=== PATIENT | female | born 1945 | race Caucasian/White ===

== ENCOUNTER 2016-12-04 14:10 | Emergency (ER) | payer MEDICARE ==
[2016-12-04 15:02] VITALS: BP 125/69
--- NOTE | 2016-12-04 15:33 | UC ---
Throat Pain/Nasal Angel HPI - HPI Summary HPI Summary: TEN DAYS OF COUGH SINUS PRESSURE CONGESTION HEADACHE AND COUGH - History of Current Complaint Chief Complaint: UCRespiratory Stated Complaint: HEADACHE COUGH CONGESTION Time Seen by Provider: 12/04/16 15:09 Hx Obtained From: Patient Onset/Duration: Gradual Onset, Lasting Weeks, Still Present, Worse Since - PROGRESSIVE Severity: Moderate Cough: Nonproductive Associated Signs & Symptoms: Positive: Sinus Discomfort, Nasal Discharge, Fever - Epiglottits Risk Factors Epiglottis Risk Factors: Negative - Allergies/Home Medications Allergies/Adverse Reactions: Allergies Allergy/AdvReac Type Severity Reaction Status Date / Time Penicillin G Allergy Intermediate Swelling Verified 12/04/16 15:02 Sulfa Drugs Allergy Intermediate Swelling Verified 12/04/16 15:02 PMH/Surg Hx/FS Hx/Imm Hx Previously Healthy: Yes Endocrine History Of: Denies: Diabetes, Thyroid Disease Cardiovascular History Of: Denies: Cardiac Disorders, Hypertension, Pacemaker/ICD Respiratory History Of: Denies: COPD, Asthma GI/ History Of: Denies: Ulcer Neurological History Of: Reports: Migraine - NOT RECENTLY Psychological History Of: Reports: Anxiety, Depression - MEDICATION WORKING WELL - Surgical History Surgical History: Yes Surgery Procedure, Year, and Place: right oopherectomy 1963 with appendectomy.tubal, csection, bilat hands,right foot,cataracts, macular hole surgery - Family History Known Family History: Positive: Cardiac Disease, Hypertension - Social History Occupation: Retired Lives: With Family Alcohol Use: Daily Alcohol Amount: 1-2 glass wine nightly Substance Use Type: None Smoking Status (MU): Former Smoker Type: Cigarettes Have You Smoked in the Last Year: Yes When Did the Patient Quit Smoking/Using Tobacco: 40 years ago - Immunization History Most Recent Influenza Vaccination: [id number] Season Most Recent Pneumonia Vaccination: 2012 Review of Systems Constitutional: Negative Skin: Negative Eyes: Negative ENT: Ear Ache, Nasal Discharge Respiratory: Cough Cardiovascular: Negative Gastrointestinal: Negative Genitourinary: Negative Motor: Negative Neurovascular: Negative Musculoskeletal: Negative Neurological: Negative Psychological: Negative All Other Systems Reviewed And Are Negative: Yes Physical Exam Triage Information Reviewed: Yes Appearance: No Pain Distress, Well-Nourished, Ill-Appearing - MILD Vital Signs: Initial Vital Signs Temp 99.1 F 12/04/16 14:57 Pulse 94 12/04/16 14:57 Resp 16 12/04/16 14:57 BP 125/69 12/04/16 14:57 Pulse Ox 99 12/04/16 14:57 Vital Signs Reviewed: Yes Eye Exam: Normal ENT: Positive: Hearing grossly normal, Pharynx normal, TM bulging, TM dull Dental Exam: Normal Neck exam: Normal Neck: Positive: Supple, Nontender, No Lymphadenopathy Respiratory Exam: Normal Respiratory: Positive: Chest non-tender, Lungs clear, Normal breath sounds, No respiratory distress, No accessory muscle use Cardiovascular Exam: Normal Cardiovascular: Positive: RRR, No Murmur, Pulses Normal Abdominal Exam: Normal Abdomen Description: Positive: Nontender, No Organomegaly Musculoskeletal Exam: Normal Musculoskeletal: Positive: Strength Intact, ROM Intact Neurological Exam: Normal Psychological Exam: Normal Psychological: Positive: Normal Response To Family Skin Exam: Normal Throat Pain/Nasal Course/Dx - Differential Dx/Diagnosis Differential Diagnosis/HQI/PQRI: Sinusitis, Tonsillitis, URI Provider Diagnoses: SINUSITIS Discharge - Discharge Plan Condition: Stable Disposition: HOME Prescriptions: Benzonatate CAP* [Tessalon CAP*] 100 mg PO TID PRN #15 cap PRN Reason: Cough DOXYcycline CAP(*) [DOXYcycline 100MG CAP(*)] 100 mg PO BID #20 cap Patient Education Materials: Sinusitis (ED), Upper Respiratory Infection (ED) Referrals: Tracy Truong MD [Primary Care Provider] -
== END 2016-12-04 15:34 | disposition home or self-care (01) ==
LOC: UCEAST 14:10
DX: J32.9 Chronic sinusitis, unspecified (principal); Z88.0 Allergy status to penicillin; Z88.2 Allergy status to sulfonamides; Z87.891 Personal history of nicotine dependence
CPT/HCPCS: 99212; G0463

== ENCOUNTER 2017-09-26 08:55 | Emergency (ER) | payer MEDICARE ==
[2017-09-26 09:12] VITALS: BP 129/64
--- NOTE | 2017-09-26 10:44 | UC ---
Throat Pain/Nasal Angel HPI - HPI Summary HPI Summary: ONE WEEK OF SINUS PAIN, FACIAL PRESSURE AND, COUGH. OVER THE LAST FEW DAYS HAS ALSO NOTICED A TENDER WARM RED AREA WITH A SMALL LUMP ON (ANTERIOR) LEFT LEG. NO DRAINAGE. NO KNOWN TRAUMA. - History of Current Complaint Chief Complaint: UCGeneralIllness Stated Complaint: SORE THROAT, COUGH, HEADACHE Time Seen by Provider: 09/26/17 10:01 Hx Obtained From: Patient Onset/Duration: Gradual Onset, Lasting Weeks, Still Present Severity: Moderate Pain Intensity: 0 Pain Scale Used: 0-10 Numeric Cough: Nonproductive Associated Signs & Symptoms: Positive: Hoarseness, Sinus Discomfort, Nasal Discharge, Rash - LEFT ANTERIOR LEG - Epiglottits Risk Factors Epiglottis Risk Factors: Negative - Allergies/Home Medications Allergies/Adverse Reactions: Allergies Allergy/AdvReac Type Severity Reaction Status Date / Time Penicillin G Allergy Intermediate Swelling Verified 09/26/17 09:12 Sulfa Drugs Allergy Intermediate Swelling Verified 09/26/17 09:12 PMH/Surg Hx/FS Hx/Imm Hx Previously Healthy: Yes - Surgical History Surgical History: Yes Surgery Procedure, Year, and Place: right oopherectomy 1963 with appendectomy.tubal, csection, bilat hands TENDON TRANSPLANT/CARPAL TUNNEL TRIGGER FINGER,right foot MORTONS NEUROMA/BUNIONECTOMY,RIGHT cataracts, macular hole surgery - Family History Known Family History: Positive: Cardiac Disease, Hypertension - Social History Occupation: Employed Full-time Lives: With Family Alcohol Use: Daily Alcohol Amount: 1-2 glass wine nightly Substance Use Type: None Smoking Status (MU): Former Smoker Type: Cigarettes Have You Smoked in the Last Year: Yes When Did the Patient Quit Smoking/Using Tobacco: 40 years ago - Immunization History Most Recent Influenza Vaccination: [id number] Season Most Recent Pneumonia Vaccination: 2012 Review of Systems Constitutional: Negative Skin: Rash Eyes: Negative ENT: Nasal Discharge, Sinus Congestion, Sinus Pain/Tenderness Respiratory: Cough Cardiovascular: Negative Gastrointestinal: Negative Genitourinary: Negative Motor: Negative Neurovascular: Negative Musculoskeletal: Negative Neurological: Negative Psychological: Negative Is Patient Immunocompromised?: No All Other Systems Reviewed And Are Negative: Yes Physical Exam Triage Information Reviewed: Yes Appearance: No Pain Distress, Well-Nourished, Ill-Appearing - MILDLY Vital Signs: Initial Vital Signs Temp 98.6 F 09/26/17 09:06 Pulse 52 12/07/17 09:06 BP 129/64 09/26/17 09:06 Pulse Ox 100 09/26/17 09:06 Vital Signs Reviewed: Yes Eye Exam: Normal ENT: Positive: Nasal congestion, TM bulging, TM dull Dental Exam: Normal Neck exam: Normal Neck: Positive: Supple, Nontender, No Lymphadenopathy Respiratory Exam: Other - COUGH Respiratory: Positive: Chest non-tender, Lungs clear, Normal breath sounds, No respiratory distress, No accessory muscle use Cardiovascular Exam: Normal Cardiovascular: Positive: RRR, No Murmur, Pulses Normal, Brisk Capillary Refill Abdominal Exam: Normal Musculoskeletal Exam: Normal Neurological Exam: Normal Psychological Exam: Normal Skin: Positive: Other - 2CM X 1CM INDURATED WARM TENDER AREA ON LEFT ANTERIOR TIBIA WITH SURROUNDING SCANT MACULAR ERYTHEMA Throat Pain/Nasal Course/Dx - Differential Dx/Diagnosis Differential Diagnosis/HQI/PQRI: Sinusitis, Tonsillitis, URI Provider Diagnoses: SNUSITIS; CELLULITIS LEFT ANTERIOR LEG Discharge - Discharge Plan Condition: Stable Disposition: HOME Prescriptions: Cephalexin CAP* [Keflex CAP*] 500 mg PO TID #30 cap Patient Education Materials: Cellulitis (ED), Sinusitis (ED) Referrals: Ivania Griggs MD [Primary Care Provider] - Images Front/Back of Body, Lg (George): 1 - 2CM X 1CM INDURATED WARM TENDER AREA ON LEFT ANTERIOR TIBIA WITH SURROUNDING SCANT MACULAR ERYTHEMA
== END 2017-09-26 10:20 | disposition home or self-care (01) ==
LOC: UCEAST 08:55
DX: J32.9 Chronic sinusitis, unspecified (principal); L03.116 Cellulitis of left lower limb; Z90.721 Acquired absence of ovaries, unilateral; Z88.0 Allergy status to penicillin; Z88.2 Allergy status to sulfonamides; Z87.891 Personal history of nicotine dependence
CPT/HCPCS: 99212; G0463

== ENCOUNTER 2018-02-10 11:39 | Emergency (ER) | payer MEDICARE ==
[2018-02-10 11:59] VITALS: BP 144/67
--- NOTE | 2018-02-10 12:31 | RAD ---
HISTORY: Right shoulder pain COMPARISONS: None VIEWS: 4, Frontal internal rotation, external rotation, outlet, and axillary views of the right shoulder FINDINGS: BONE DENSITY: Normal. BONES: There is no displaced fracture. JOINTS: There is mild osteoarthritis of the right AC joint. ALIGNMENT: There is no dislocation. SOFT TISSUES: Unremarkable. OTHER FINDINGS: None. IMPRESSION: NO ACUTE OSSEOUS INJURY. IF SYMPTOMS PERSIST, RECOMMEND REPEAT IMAGING.
--- NOTE | 2018-02-10 12:31 | UC ---
Upper Extremity HPI - HPI Summary HPI Summary: Pt presents with right shoulder pain. She tells me that she has a history of arthritis in this shoulder and it is always painful, but yesterday she was lifting boxes. Had no specific injury, but woke up this morning with pain in her right shoulder. Has been applying bengay with good pain relief. Denies numbness or tingling. - History of Current Complaint Chief Complaint: UCUpperExtremity Stated Complaint: SHOULDER PAIN Time Seen by Provider: 02/10/18 12:04 Hx Obtained From: Patient Onset/Duration: Sudden Onset Severity Initially: Moderate Severity Currently: Moderate Pain Intensity: 8 Character: Dull, Stiffness Aggravating Factor(s): Movement Alleviating Factor(s): OTC Meds - Allergies/Home Medications Allergies/Adverse Reactions: Allergies Allergy/AdvReac Type Severity Reaction Status Date / Time Penicillins Allergy Swelling Verified 02/10/18 12:00 Sulfa (Sulfonamide Allergy Swelling Verified 02/10/18 12:00 Antibiotics) Home Medications: Home Medications FLUoxetine CAP* [PROzac CAP*] 10 mg PO BEDTIME 02/10/18 [History Confirmed 02/10] Ibuprofen TAB* [Advil TAB*] 200 mg PO Q6H PRN 02/10/18 [History Confirmed ] Sertraline* [Zoloft*] 200 mg PO DAILY 02/10/18 [History Confirmed 02/10/18] PMH/Surg Hx/FS Hx/Imm Hx Previously Healthy: Yes Psychological History: Anxiety, Depression - Surgical History Surgical History: Yes Surgery Procedure, Year, and Place: right oopherectomy 1963 with appendectomy.tubal, csection, bilat hands TENDON TRANSPLANT/CARPAL TUNNEL TRIGGER FINGER,right foot MORTONS NEUROMA/BUNIONECTOMY,RIGHT cataracts, macular hole surgery - Family History Known Family History: Positive: Cardiac Disease, Hypertension - Social History Alcohol Use: Weekly Alcohol Amount: 1-2 glass wine nightly Substance Use Type: None Smoking Status (MU): Former Smoker Type: Cigarettes Have You Smoked in the Last Year: Yes When Did the Patient Quit Smoking/Using Tobacco: 40 years ago - Immunization History Most Recent Influenza Vaccination: [id number] Season Most Recent Pneumonia Vaccination: 2012 Review of Systems Constitutional: Negative Skin: Negative Respiratory: Negative Cardiovascular: Negative Gastrointestinal: Negative Neurovascular: Negative Musculoskeletal: Decreased ROM - Right shoulder, Other: - Right shoulder pain Neurological: Negative Psychological: Negative All Other Systems Reviewed And Are Negative: Yes Physical Exam - Summary Physical Exam Summary: GENERAL: NAD. WDWN. No pain distress. SKIN: No rashes, sores, ulcers, masses, lesions. NECK: Supple. Nontender. No lymphadenopathy. CHEST: CTAB. No r/r/w. No accessory muscle use. Breathing comfortably and in no distress. CV: RRR. Without m/r/g. Pulses intact radial and ulnar. MSK: TTP over right trapezius and right suprascapular muscle. Strength 5/5 including work checker strength and FROM - pain increased with full flexion of right shoulder. No edema or obvious bony deformities. Negative apleys, apprehension, empty can, galvan-oleg, neer, patel, and yergason tests. NEURO: Alert. Sensations intact right UE C4-T1 PSYCH: Age appropriate behavior. Triage Information Reviewed: Yes Vital Signs: Initial Vital Signs Temp 98.3 F 02/10/18 11:55 Pulse 81 02/10/18 11:55 Resp 16 02/10/18 11:55 BP 144/67 02/10/18 11:55 Pulse Ox 100 02/10/18 11:55 Upper Extremity Course/Dx - Course Course Of Treatment: XR: IMPRESSION: NO ACUTE OSSEOUS INJURY. IF SYMPTOMS PERSIST, RECOMMEND REPEAT IMAGING. Suspect muscle strain of right shoulder/ trapezius. Advised to continue tylenol and will rx for voltaren gel. - Differential Dx/Diagnosis Provider Diagnoses: Muscle strain right shoulder Discharge - Sign-Out/Discharge Documenting (check all that apply): Discharge/Admit/Transfer - Discharge Plan Condition: Stable Disposition: HOME Prescriptions: Diclofenac 1% GEL (NF) [Voltaren 1% GEL (NF)] 1 applic TOPICAL BID PRN #1 tube PRN Reason: Pain Patient Education Materials: Muscle Spasm (ED) Referrals: Ivania Griggs MD [Primary Care Provider] - Additional Instructions: If you develop a fever, shortness of breath, chest pain, new or worsening symptoms - please call your PCP or go to the ED. - Billing Disposition and Condition Condition: STABLE Disposition: HOME
== END 2018-02-10 13:01 | disposition home or self-care (01) ==
LOC: UCEAST 11:39
DX: S46.911A Strain of unspecified muscle, fascia and tendon at shoulder and upper arm level, right arm, initial encounter (principal); X50.0XXA Overexertion from strenuous movement or load, initial encounter; Y93.9 Activity, unspecified; Y92.9 Unspecified place or not applicable; F41.9 Anxiety disorder, unspecified; F32.9 Major depressive disorder, single episode, unspecified; Z88.0 Allergy status to penicillin; Z88.2 Allergy status to sulfonamides; Z87.891 Personal history of nicotine dependence
CPT/HCPCS: 99212; G0463

== ENCOUNTER 2019-02-23 09:21 | Day surgery (SDC) | payer MEDICARE ==
--- NOTE | 2019-01-16 13:55 | HP ---
PREOPERATIVE HISTORY AND PHYSICAL: DATE OF ADMISSION/SURGERY: 01/26/19 DATE OF OFFICE VISIT: 01/16/19 ATTENDING SURGEON: Dr. Javier Bustos* (dictated by VINOD Martin). PROCEDURE: Left shoulder possible arthroscopic rotator cuff repair, arthroscopic decompression and debridement, subpectoral biceps tenodesis. CHIEF COMPLAINT: Left shoulder pain. HISTORY OF PRESENT ILLNESS: Trisha is a 74-year-old female who presents to the clinic for left shoulder pain due to partial-thickness rotator cuff tearing and biceps tendinitis. She has failed conservative measures; therefore, agreed to undergo a left shoulder possible arthroscopic rotator cuff repair, arthroscopic decompression and debridement, subpectoral biceps tenodesis with Dr. Bustos on 01/26/19. PAST MEDICAL HISTORY: Osteoarthritis, depression, anxiety, GERD, high cholesterol, and seasonal allergies. PAST SURGICAL HISTORY: Multiple hand surgeries bilaterally, , right foot surgery, cataract surgery, macular hole repair, dental surgery and implants , and oophorectomy. The patient is unable to take Versed because it causes extreme vomiting, otherwise denies complications with anesthesia. MEDICATIONS: 1. Multivitamin 1 daily. 2. Vitamin B12 1000 mcg 1 every day. 3. Vitamin B once a day. 4. Florastor 250 mg 1 by mouth twice a day. 5. Omeprazole 40 mg 1 by mouth twice a day. 6. Diclofenac 1% 1 g on the hand twice a day. 7. QVAR RediHaler 80 mcg per ACT 2 puffs twice a day. 8. Sertraline 100 mg 2 by mouth every day. 9. Atorvastatin 10 mg 1 by mouth every day. 10. Alendronate sodium 70 mg take once weekly on an empty stomach. ALLERGIES: SULFA ANTIBIOTICS and VERSED. FAMILY HISTORY: Positive for diabetes, cancer and RA. Denies family history of DVT or PE. SOCIAL HISTORY: She lives with her spouse. She is a retired teacher. She denies tobacco use. She denies alcohol consumption. She is right-hand dominant. REVIEW OF SYSTEMS: A 14-point review of systems was reviewed with the patient. Positive for current complaint, otherwise negative. Denies fever, chills, chest pain, shortness of breath, history of bleeding disorder, history of DVT or PE. PHYSICAL EXAMINATION GENERAL: A 74-year-old well-developed, well-nourished female, in no acute distress. VITAL SIGNS: Height 65, weight 128, pulse 84, blood pressure 122/72, respiratory rate 18, temperature 99.3, BMI 21.3. HEENT: Normocephalic, atraumatic. PERRLA. Throat clear. NECK: Supple. PULMONARY: Lungs are clear to auscultation bilaterally. No wheezing, rhonchi, or rales. CARDIO: Regular rate and rhythm. S1, S2. No murmurs, gallops, or rubs. No edema. ABDOMEN: Positive bowel sounds. Soft, nontender. NEURO: Alert and oriented x3. Cranial nerves grossly intact. MUSCULOSKELETAL: Left upper extremity: Skin is intact. No warmth or erythema. Forward flexion and abduction 170, external rotation to 65, internal rotation to the lumbar spine. Tenderness to palpation of the bicipital groove. +5/5 strength to rotator cuff testing with pain. Positive impingement, Speed' s, Keith', [place]'s. +2 radial pulse. Sensation is intact to light touch distally. DIAGNOSTIC STUDIES: MRI of the left shoulder revealed cystic changes of the rotator cuff insertion with partial-thickness tearing and supraspinatus tendinosis as well as fluid in the bicipital groove and biceps tendinopathy. IMPRESSION: Left shoulder rotator cuff tear, biceps tendinitis. PLAN: The patient is scheduled to undergo a left shoulder possible arthroscopic rotator cuff repair, arthroscopic decompression and debridement, subpectoral biceps tenodesis with Dr. Bustos on 01/26/19. She will follow up 10 to 14 days postop for followup and suture removal. Percocet will be used for postop pain management. VINOD MARTIN [id number]/[facility] #: [id number] HOSPITALHenrique
[~2019-02-23 09:21] MED LIST: Buffered Lidocaine 1% SYRIN* 1 ML/SYRINGE INTRADERM ONE; Dexmedetomidine* 200 MCG/2 ML 2 ML VIAL ONE; Lactated Ringers 1000 ML Bag* 1,000 ML IV SCH; Lidocaine 2% PF * 5 ML VIAL ONE; Midazolam* 1 MG/ML 2 ML VIAL (2 MG) ONE; Propofol* 10 MG/ML 20 ML BTL ONE; Rocuronium* 10 MG/ML VIAL ONE; fentaNYL* 50 MCG/ML 2 ML VIAL (100 MCG VIAL) ONE
[2019-02-23] MEDS ORDERED: ceFAZolin 2 GM PREMIX in ORs 2 GM/50 ML BAG IVPB ONE (09:25)
[2019-02-23] MEDS ORDERED: ROPIVACAINE 5 MG/ML 30 ML BTL (0.5%) ONE (10:06)
[2019-02-23] MEDS ORDERED: Bupivacaine 0.25% SDV* 30 ML ONE (10:27)
[2019-02-23] MEDS ORDERED: Dexamethasone IV* 4 MG/ML 1 ML (4 MG) ONE (12:04)
[2019-02-23] MEDS ORDERED: EPHEDrine (Pressors)* 50 MG/ML VIAL ONE (12:17)
[2019-02-23] MEDS ORDERED: Naloxone* 0.4 MG/ML 1 ML VIAL IV PRN (12:56)
[2019-02-23] MEDS ORDERED: DiMENhydriNATE IV* 50 MG/ML VIAL IV PUSH PRN (12:56)
[2019-02-23] MEDS ORDERED: fentaNYL* 50 MCG/ML 2 ML VIAL (100 MCG VIAL) IV PRN (12:56)
[2019-02-23] MEDS ORDERED: oxyCODONE TAB* 5 MG TAB PO PRN (12:56)
[2019-02-23] MEDS ORDERED: Ondansetron INJ* 2 MG/ML VIAL ONE (12:57)
[2019-02-23] MEDS ORDERED: Metoclopramide IV* 5 MG/ML 2 ML VIAL ONE (12:57)
[2019-02-23] MEDS ORDERED: Ketorolac INJ* 30 MG/ML 1 ML VIAL ONE (12:57)
[2019-02-23] MEDS ORDERED: Acetaminophen IV 1GM/100ML * 100 ML ONE (12:59)
[2019-02-23 14:23] VITALS: BP 122/68
--- NOTE | 2019-02-24 05:45 | OP ---
DATE OF OPERATION: 02/23/19 - [facility] DATE OF : 49 SURGEON: Javier Bustos MD ASSISTANTS: 1. VINOD Rodriguez 2. Bev Nava. Assistants were needed for the entire of the case to help with positioning, retraction, and was utilized throughout all portions of the case. ANESTHESIOLOGIST: Dr. Cervantes. ANESTHESIA: General interscalene block. PRE-OP DIAGNOSIS: Left shoulder posttraumatic impingement with bicipital tendinosis. POST-OP DIAGNOSIS: High-grade bursal side tear of the rotator cuff. OPERATIVE PROCEDURE: Left shoulder arthroscopy with: 1. Extensive glenohumeral debridement. 2. Subacromial decompression with acromioplasty. 3. Rotator cuff repair with Regeneten patch. 4. Biceps tenodesis. IMPLANTS USED: One Regeneten patch and one Q-Fix. COMPLICATIONS: None. ESTIMATED BLOOD LOSS: Minimal. INDICATIONS: Trisha Canchola is a 74-year-old female who had a previous proximal humerus fracture that healed uneventfully, but she had postinjury impingement as well as bicipital tendinitis. She has failed conservative management including physical therapy, antiinflammatories, injections. She has elected to proceed with surgical treatment. Risks and benefits were discussed at length including, but not limited to bleeding; infection; damage to nerves, vessels, surrounding structures; wound nonhealing; persistent pain; need for further surgery; scarring; stiffness; incomplete relief of symptoms; risks of anesthesia. DESCRIPTION OF PROCEDURE: The patient was greeted in the preoperative area by the attending surgeon. Correct extremity was marked and consent was confirmed. The patient was brought back to the operating suite, where she was placed in supine position on the operating table. She then underwent general anesthesia and endotracheal intubation. The left shoulder was draped unsterile with 10 pounds of traction and she was secured with pegboard and axillary roll. The left shoulder was prepped and draped in the usual sterile fashion beginning with chlorhexidine soap, scrub, and alcohol wipe and final prep of ChloraPrep. After appropriate surgical pause indicating the side, site, procedure, and administration of antibiotics, a standard posterolateral portal was made sharply with 11 blade. The scope was introduced into the joint. The anterior aspect of the joint was visualized and actually had some mild arthritic changes with small areas of grade 3 changes. The anterior, posterior, and superior labrum had some mild fraying. The anterior portal was made in an outside-in fashion. Shaver was used to debride back the anterior, posterior, and superior labrum. Biceps was then tenotomized for later tenodesis as there was obviously tearing. Subscap was intact. The undersurface of the rotator cuff looked to be okay, but had some mild thinning but no obvious loose flaps. The inferior recess was intact. There was abundant synovitis. Again, there were chondral changes to the glenoid and the humerus. The shaver was used to debride back to a small chondroplasty. Debrided the anterior, posterior, and superior labrum and released the biceps. Once the intra-articular work was complete, attention was directed to the subacromial space. With the scope positioned in the subacromial space, a lateral portal was made in outside-in fashion. Shaver was used to debride back the abundant bursa that was present. The anterolateral acromion had a spur. This was debrided back using 4-0 oval martha. All debris was removed from this portion of the case. After significant bursectomy that was done, the cuff was then gently probed and this side had some partial tearing. Decision was made to treat this with a Regeneten patch. A size medium Regeneten patch was brought to the field and then placed under arthroscopic and direct visualization. Through a separate stab incision, a cannula was placed to facilitate passage of the medial tendon jean. Once these were then secured medially, the bone staple was then secured laterally. Once this was secured laterally, the shoulder was taken through gentle range of motion. The graft was found to be well placed and final images were obtained. The wounds were copiously irrigated with sterile saline. Attention was directed to biceps. The bed was air planed to the left side. The anterior aspect of the shoulder was prepped again using ChloraPrep. A 15-blade was used to make incision in line with the biceps tendon. The soft tissues were carefully dissected to expose the pec tendon. Remainder of the dissection was done bluntly. The biceps was felt to the groove and it was felt that the wound had abundant synovitis. Groove was then prepared in the usual fashion with electrocautery device, red ball rasp, and osteotome. The Q-Fix was then drilled unicortically and placed with excellent purchase. The sutures was then passed through the tendon in a Rickie-David type configuration. Excess stump was excised. Biceps was shuttled down to the wound and secured. The wounds were copiously irrigated and the anterior wound was closed in layers with 3-0 Monocryl. Portals were closed with 3-0 nylon. Sterile dressings were applied. Cryo/Cuff and UltraSling were applied. She was awoken from anesthesia and transferred to PACU in stable condition. POSTOPERATIVE PLAN: She will be nonweightbearing. She will start therapy this week. She will be discharged on pain medications. DVT prophylaxis considered but deferred due to no pervious personal or family history. I will see her back in 10 to 14 days. [id number]/[facility] #: [id number] [place]
== END 2019-02-23 14:20 | disposition home or self-care (01) ==
LOC: OREAST 09:21
PROVIDERS: ATTEND Orthopaedic Surgery
DX: S46.012A Strain of muscle(s) and tendon(s) of the rotator cuff of left shoulder, initial encounter (principal); M75.42 Impingement syndrome of left shoulder; M75.22 Bicipital tendinitis, left shoulder; X58.XXXA Exposure to other specified factors, initial encounter; Y92.9 Unspecified place or not applicable; G89.18 Other acute postprocedural pain; M19.90 Unspecified osteoarthritis, unspecified site; F41.8 Other specified anxiety disorders; K21.9 Gastro-esophageal reflux disease without esophagitis; E78.00 Pure hypercholesterolemia, unspecified; Z87.891 Personal history of nicotine dependence
CPT/HCPCS: C1713; C1776; J0690; J1100; J1885; J2250; J2405; J2704; J2765; J2795; J3010; J3490